=== PATIENT | female | born 1950 | race Caucasian/White ===

== ENCOUNTER 2019-03-31 13:07 | Outpatient (CLI) | payer MEDICARE, OTHER, SELFPAY ==
--- NOTE | 2019-03-31 13:21 | USCV_ITS ---
Letty Lindsey Age: 68 Gender: F : 1950 Exam Date: 03/31/2019 13:33 Ordering Phys: Iris Ashley RN Technologist: Pierre Irvin Exam Location: [facility] [place] Indication: HEART MURMUR BP: 130 / 74 HR: 92 Rhythm: Sinus Technical Quality: Good MEASUREMENTS (Male / Female) Normal Values 2D ECHO LV Diastolic Diameter PLAX 3.4 cm 4.2 - 5.9 / 3.9 - 5.3 cm LV Systolic Diameter PLAX 2.1 cm IVS Diastolic Thickness 1.0 cm 0.6 - 1.0 / 0.6 - 0.9 cm IVS Systolic Thickness 1.5 cm LVPW Diastolic Thickness 0.9 cm 0.6 - 1.0 / 0.6 - 0.9 cm LVPW Systolic Thickness 1.2 cm LVOT Diameter 2.1 cm LV Ejection Fraction 2D Teich 68.3 % LV Ejection Fraction MOD 2C 56.0 % LV Ejection Fraction 2C AL 58.3 % LA Diameter 4.6 cm LA Width 3.4 cm LA Height 4.8 cm RA Width 3.1 cm RA Height 4.4 cm Aorta at Sinotubular Diameter 2.3 cm M-MODE LV Diastolic Diameter MM 5.6 cm 4.2 - 5.9 / 3.9 - 5.3 cm LV Systolic Diameter MM 2.6 cm LV Ejection Fraction MM Teich 83.5 % IVS Diastolic Thickness MM 1.1 cm 0.6 - 1.0 / 0.6 - 0.9 cm IVS Systolic Thickness MM 1.7 cm LVPW Diastolic Thickness MM 1.1 cm 0.6 - 1.0 / 0.6 - 0.9 cm LVPW Systolic Thickness MM 1.7 cm RV Diastolic Diameter MM 1.4 cm Aortic Annulus Diameter 3.4 cm LA Ao Ratio MM 1.4 MV E Point Septal Separation 0.6 cm DOPPLER AV Peak Velocity 189.0 cm/s LVOT Peak Velocity 114.0 cm/s AV Area Cont Eq vti 2.2 cm squared AV Area Cont Eq pk 2.0 cm squared MV Area PHT 5.0 cm squared Mitral E to A Ratio 0.8 MV E' Velocity 8.0 cm/s Mitral E to MV E' Ratio 13.6 Mitral E to LV E' Lateral Ratio 12.7 Mitral E to LV E' Septal Ratio 14.8 TR Peak Velocity 110.0 cm/s TR Peak Gradient 4.9 mmHg TV Peak E Velocity 78.0 cm/s Right Atrial Pressure 3.0 mmHg Pulmonary Artery Systolic Pressu 7.8 mmHg PV Peak Velocity 103.0 cm/s FINDINGS Left Ventricle Normal left ventricular cavity size. Normal left ventricular systolic function. No regional wall motion abnormalities. Left ventricular ejection fraction is estimated at 65 %. Grade I/IV diastolic dysfunction (abnormal relaxation filling pattern), normal to mildly elevated filling pressures. Right Ventricle The right ventricle is normal in size and function. Right Atrium The right atrium is normal in size. Left Atrium The left atrium is normal in size. Mitral Valve Structurally normal mitral valve without significant stenosis or prolapse. There is no mitral regurgitation. Aortic Valve Aortic valve sclerosis without stenosis or regurgitation. Tricuspid Valve Structurally normal tricuspid valve without significant stenosis or regurgitation. Pulmonary artery systolic pressure is normal. Pulmonic Valve Structurally normal pulmonic valve without significant stenosis. There is no pulmonic regurgitation. Pericardium Normal pericardium without effusion. Aorta Normal ascending aorta dimension. CONCLUSIONS 1-Normal left ventricular cavity size. Normal left ventricular systolic function. No regional wall motion abnormalities. Left ventricular ejection fraction is estimated at 65 %. Grade I/IV diastolic dysfunction (abnormal relaxation filling pattern), normal to mildly elevated filling pressures. 2-No significant valve abnormalities. 3-There is no pericardial effusion. 4-Pulmonary artery systolic pressure is within normal limits. 5-Right atrial pressure is around 5 mm of mercury. 6-There are no prior echocardiogram studies to compare. Misty Jones MD (Electronically Signed) Final Date: 31 March 2019 19:15 S
== END 2019-03-31 13:08 | disposition home or self-care (01) ==
PROVIDERS: Family Provider Nurse Practitioner Family; PCP Nurse Practitioner Family; Visit Provider Nurse Practitioner Family
DX: I35.8 Other nonrheumatic aortic valve disorders (principal); R01.1 Cardiac murmur, unspecified
CPT/HCPCS: 93306

== ENCOUNTER 2019-04-02 10:25 | Outpatient (CLI) | payer MEDICARE, OTHER, SELFPAY ==
[2019-04-02] MEDS: sodium chloride 0.9% 100 ML 400 ML (12:25)
--- NOTE | 2019-04-02 18:25 | ONC CON_ITS ---
Dr. Okeefe New Patient Note Patient: Letty Lindsey Unit #: [id number]: 1950 Dicatated By: Juvenal Okeefe M.D.Date of Visit: Apr 02, 2019 Onc MED New Patient/Consult Referring Physician: Chief Complaint: Anemia. History of Present Illness: This is a 68 year-old woman with iron deficiency anemia. This patient has a history of having undergone a gastric banding procedure for obesity approximately 15 years ago. Her records indicate a prior history of peptic ulcer disease and a history of ulcerative colitis 10 years ago. She has had recurrent episodes of iron deficiency anemia, which required parenteral iron replacement, and she had not responded to oral iron therapy. She started getting these a few years ago while she was living in [place], and she indicates that she has been getting them about every 6 months. She was most recently treated here with 2 infusions of Injectafer in September 2018. She had a scheduled follow-up visit with Iris Ashley on 03/25/2019. Her CBC at that time showed hemoglobin low at 7.5 g with hematocrit 23.8%. The red cell indices were in the low normal range. The white blood cell count was 5100. The platelet count was mildly decreased at 105,000. Her comprehensive metabolic profile showed normal renal function with BUN 17 and creatinine 0.76 mg/dL. The bilirubin was borderline at 1.0 mg/dL with the liver enzymes slightly elevated and with the albumin level mildly decreased at 3.3 g/dL. Her initial serum iron studies showed low transferrin saturation at 6%. She was started on oral iron supplementation with ferrous sulfate 325 mg 3 times daily. Her repeat CBC showed hemoglobin slightly lower at 7.2 g. Her repeat serum iron was elevated, but that was most likely inaccurate. In October she had been admitted to the hospital with nausea/vomiting. I do not think you specific cause for it was determined. It was severe enough that she did have a [address] abdomen/pelvis showed somewhat irregular contour of the liver margins, suggesting possible cirrhosis, and her liver enzymes were mildly elevated. There was no splenomegaly, though. Gallbladder ultrasound reported hepatomegaly with fatty infiltration of the liver. She improved with conservative management. She is seen for further management of the anemia. She indicates that her energy has been very low, and she has had very limited activity tolerance. Some complement of that is related to having recently been treated for pneumonia. She says she is just now getting over it. Her ECOG score is 2. Her appetite is getting better. Her weight has remained stable since her hospitalization in October. She had fever with the pneumonia, but that has resolved. She does not have hot flashes or night sweating. She says her breathing is okay now. She has just a little bit of cough. She had soreness in the chest with the pneumonia, but she otherwise has not had chest pain. She did have some nausea initially with the ferrous sulfate. She has acid reflux, but it is managed adequately with medication. She had been having constipation, but recently she has started having some diarrhea. She has no complaints with bladder function. She says she has a lot of arthritis, mainly in her hands and legs. She also has back pain. She does not complain of headache. She had lightheadedness when she was sick. She has no focal neurologic symptoms. Past Medical History: Her medical history consists of degenerative arthritis, depression, gastroesophageal reflux disease, hyperlipidemia, hypertension, osteoporosis, and ulcerative colitis. She has a history of diabetes, which is currently not requiring treatment, and she has a history of seizures, Past Surgical History: Her surgical/procedural history includes excision of benign breast lesion, gastric band procedure, bilateral total knee arthroplasty in 2017, rotator cuff repair in 2017, and hysterectomy/bilateral salpingectomy-oophorectomy in 1989. Medications: Atorvastatin Calcium 1 Tablet (of 40 mg) Oral daily, Cymbalta 1 Capsule (of 60 mg) Capsule Delayed Release Particles Oral daily, Ferrous Sulfate 1 Tablet (of 325 (65 fe) mg) Oral daily, Folic Acid 1 Tablet (of 1 mg) Oral daily, Gabapentin 1 Tablet (of 600 mg) Oral daily, Lisinopril 1 Tablet Oral daily, Omeprazole 1 Tablet (of 20 mg) Tablet, enteric coated Oral daily, traZODone HCl 2 Tablet (of 50 mg) Oral at bedtime, ZyrTEC Allergy 1 Tablet (of 10 mg) Oral daily Allergies: penicillin Social History: Ms. Lindsey is . She has a history of smoking 1/2 pack of cigarettes daily for about 15 years. She quit approximately 20 years ago. She drinks 2 glasses of wine every night. She indicates that she has never been a heavy drinker. Family History: Father of prostate cancer at age 77. Her mother has heart disease and dementia. She still living at age 99. A brother has diabetes. A sister is been treated for breast cancer. Review Of Symptoms: Constitutional - Her energy is low. Her appetite is poor. She lost about 20 pounds last fall due to sickness. No fever, chills, hot flashes, or night sweats. ECOG score is 2, Eyes - Her vision has worsened. She has cataracts that will be removed, ENMT - She has sinus congestion/drainage with sore throat and slight cough. No mouth sores. No difficulty swallowing, Hematologic/Lymphatic - She bruises easily, Respiratory - She recently had pneumonia. No shortness of breath. No pleuritic pain or hemoptysis, Cardiovascular - She has chest soreness from the coughing. No angina pain. No palpitations, Gastrointestinal - No nausea or vomiting. No heartburn or acid reflux. She has had diarrhea. No blood in the stool or black stools, Genitourinary (F) - No dysuria or hematuria. No urinary frequency. No urgency or incontinence, Musculoskeletal - She has arthritis, mainly in her hands. She also has pain in her back and legs, Integumentary - No skin complications, Neurologic - She has occasional headaches. She was dizzy and light-headed when she had pneumonia. No numbness/paresthesias or other focal neurologic symptoms, Psychiatric - No anxiety or depression. No insomnia. Vital Signs: Performed on Apr 02, 2019 11:48: 0, 31.56 (HIGH), 1.70 sq.m, 60.00 in, 100 %, 92 /min, 22 /min, 131/72 mm(hg), 98.7 F, and 161.6 lbs (HIGH). Physical Examination: Constitutional - She appears somewhat weak generally, Eyes - Sclerae nonicteric. Conjunctivae clear, ENMT - No lesions noted in the oral cavity, Neck - No mass or thyromegaly, Hematologic/Lymphatic - No cervical, clavicular, or axillary adenopathy, Respiratory - Lungs sound clear with good air movement bilaterally, Cardiovascular - Heart rhythm is regular. There is a II/ systolic murmur. There is no gallop or rub noted, Abdomen - Soft and non-tender. Liver and spleen are not enlarged. There is no abdominal mass or ascites noted and there is no inguinal adenopathy, Back/Spine - No spine or CVA tenderness noted, Extremities - No edema. Pedal pulses are palpable bilaterally. There are purpuric lesions on both arms, Integumentary - No rashes. No suspicious skin lesions noted, Neurologic - No focal neurologic deficits noted. Impression: 1. Patient with recurrent episodes of iron deficiency anemia. This is most likely due to inadequate oral iron absorption, as in the past she has not been responsive to oral iron supplementation. She has required parenteral iron replacement on multiple occasions, most recently in August 2018. 2. She has a history of having undergone a gastric banding procedure approximately 15 years ago. 3. She also has GERD and a history of ulcerative colitis, and GI blood loss also needs to be excluded. Her other medical illnesses include: 4. Hypertension. 5. Hyperlipidemia. 6. She has a previous history of type 2 diabetes, but she has not required treatment for it since her gastric banding. 7. Degenerative arthritis. 8. Osteoporosis. 9. History of seizures. 10. Depression. Plan: She will be given parenteral iron replacement with 2 infusions of Injectafer. She will then have a 1-month interval follow-up visit, and based on her response, she can then have further evaluation for the anemia as indicated. Signed By: Juvenal Okeefe M.D. <<Signature on File>>
== END 2019-04-02 10:26 | disposition home or self-care (01) ==
PROVIDERS: Family Provider Nurse Practitioner Family; PCP Nurse Practitioner Family; Visit Provider Internal Medicine Hematology & Oncology
DX: D50.8 Other iron deficiency anemias (principal); M19.90 Unspecified osteoarthritis, unspecified site; F32.9 Major depressive disorder, single episode, unspecified; K21.9 Gastro-esophageal reflux disease without esophagitis; E78.5 Hyperlipidemia, unspecified; I10 Essential (primary) hypertension; M81.0 Age-related osteoporosis without current pathological fracture; Z98.84 Bariatric surgery status; Z87.11 Personal history of peptic ulcer disease; Z96.653 Presence of artificial knee joint, bilateral; Z87.891 Personal history of nicotine dependence
CPT/HCPCS: 96365; 99205; J1439

== ENCOUNTER 2019-04-10 09:32 | Outpatient (CLI) | payer MEDICARE, OTHER, SELFPAY ==
[2019-04-10] MEDS: sodium chloride 0.9% 100 ML 400 ML IV (09:50)
== END 2019-04-10 09:33 | disposition home or self-care (01) ==
LOC: ONCMED 09:38
PROVIDERS: Family Provider Nurse Practitioner Family; PCP Nurse Practitioner Family; Visit Provider Internal Medicine Medical Oncology
DX: D50.9 Iron deficiency anemia, unspecified (principal)
CPT/HCPCS: 96365; J1439

== ENCOUNTER 2019-05-11 12:28 | Outpatient (CLI) | payer MEDICARE, OTHER, SELFPAY ==
[2019-05-11 13:29] LABS: Basophils % 0.5 %; Eosinophils # 0.1 10^3/uL (0.0-0.8); Eosinophils % 1.8 %; Hematocrit 34.1 % (37.0-47.0); Hemoglobin 10.5 g/dL (11.5-15.3); Lymphocytes # 0.9 10^3/uL (0.8-4.8); Lymphocytes % 19.7 %; Mean Corpuscular HGB Conc 30.8 g/dL (30.0-36.0); Mean Corpuscular Hemoglobin 30.4 pg (28.0-34.0); Mean Corpuscular Volume 98.8 fL (81-99); Mean Platelet Volume 10.3 fL (7.4-10.4); Monocytes # 0.4 10^3/uL (0.2-0.9); Monocytes % 9.4 %; Neutrophils % 68.1 %; Nucleated Red Blood Cells % 0 %; Platelet Count 100 10^3/cmm (130-400); Red Blood Count 3.45 10^6/uL (4.1-5.3); Red Cell Distribution Width 19.3 % (12.1-15.1); White Blood Count 4.4 10^3/uL (4.0-10.0)
[2019-05-11 13:57] LABS: Alanine Aminotransferase 32 U/L (0-33); Albumin Level 2.9 g/dL (3.5-5.2); Alkaline Phosphatase 122 IU/L (35-105); Anion Gap 13.2 (5-19); Aspartate Amino Transferase 77 U/L (0-32); Blood Urea Nitrogen 8 mg/dL (8-23); Calcium 7.7 mg/dL (8.5-10.5); Carbon Dioxide 27 mmol/L (22-29); Chloride 100 mmol/L (98-107); Ferritin 382 ng/mL (15-150); Globulin 3.4 g/dL (1.3-4.6); Glomerular Filtration Rate 98.8 mL/min (90-130); Glucose 125 mg/dL (65-115); Iron 101 ug/dL (37-145); Lactate Dehydrogenase 287 U/L (135-214); Percent Saturation 56.4 % (20-50); Potassium 4.2 mmol/L (3.5-5.1); Sodium 136 mmol/L (136-145); Total Bilirubin 1.6 mg/dL (0.15-1.2); Total Iron Binding Capacity 179 mcg/dl; Total Protein 6.3 g/dL (6.6-8.7); Unsaturated Iron Binding 78 ug/dL (112-347)
[2019-05-11 14:13] LABS: Erythrocyte Sedimentation Rate 9 mm/hr (0-15); Vitamin B12 1187 pg/mL (232-1245)
[2019-05-11 14:41] LABS: Folate Level 11.1 ng/mL (4.8-37.3)
--- NOTE | 2019-05-15 14:08 | ONC FU_ITS ---
Dr. Okeefe Patient Follow-Up Note Patient: Letty Lindsey Unit #: [id number]: 1950 Dicatated By: Juvenal Okeefe M.D.Date of Visit:May 11, 2019 Onc Med Follow-up/Prog Note Chief Complaint: Anemia. History of Present Illness: This is a 68 year-old woman with iron deficiency anemia. This patient has a history of having undergone a gastric banding procedure for obesity approximately 15 years ago. Her records indicate a prior history of peptic ulcer disease and a history of ulcerative colitis 10 years ago. She has had recurrent episodes of iron deficiency anemia, which required parenteral iron replacement, and she had not responded to oral iron therapy. She started getting these a few years ago while she was living in [place], and she indicates that she has been getting them about every 6 months. She was most recently treated here with 2 infusions of Injectafer in September 2018. She had a scheduled follow-up visit with Iris Ashley on 03/25/2019. Her CBC at that time showed hemoglobin low at 7.5 g with hematocrit 23.8%. The red cell indices were in the low normal range. The white blood cell count was 5100. The platelet count was mildly decreased at 105,000. Her comprehensive metabolic profile showed normal renal function with BUN 17 and creatinine 0.76 mg/dL. The bilirubin was borderline at 1.0 mg/dL with the liver enzymes slightly elevated and with the albumin level mildly decreased at 3.3 g/dL. Her initial serum iron studies showed low transferrin saturation at 6%. She was started on oral iron supplementation with ferrous sulfate 325 mg 3 times daily. Her repeat CBC showed hemoglobin slightly lower at 7.2 g. Her repeat serum iron was elevated, but that was most likely inaccurate. In October she had been admitted to the hospital with nausea/vomiting. I do not think you specific cause for it was determined. It was severe enough that she did have a [address] abdomen/pelvis showed somewhat irregular contour of the liver margins, suggesting possible cirrhosis, and her liver enzymes were mildly elevated. There was no splenomegaly, though. Gallbladder ultrasound reported hepatomegaly with fatty infiltration of the liver. She improved with conservative management. I had seen her initially on 04/02/2019 for further management of the anemia. As her anemia was not responding to oral iron supplementation, she was given parenteral iron replacement with 2 infusions of Injectafer. She tolerated it without acute toxicity. She is seen for a follow-up visit. She has not been feeling good. She had recently started taking furosemide for generalized swelling. She complains that she was been dogged tired right after the iron infusions, but about a week later she started feeling a little better. She has been able to do some light work. ECOG score is 1. She says she does not have much appetite, but she has gained weight. She has no fever or night sweats. She said is has been a little bit harder for her to breathe. She has had some cough at night. She does not complain of chest pain. She had a little bit of nausea. She also has had constipation, but her stools have tended to be loose with a stool softener. She has not been aware of any blood in the stool. She has no complaints. Her arthritis pain is adequately managed. She has no focal neurologic symptoms. Medications: Atorvastatin Calcium 1 Tablet (of 40 mg) Oral daily, Cymbalta 1 Capsule (of 60 mg) Capsule Delayed Release Particles Oral daily, Folic Acid 1 Tablet (of 1 mg) Oral daily, Gabapentin 1 Tablet (of 600 mg) Oral daily, HYDROcodone-Acetaminophen 1 Tablet (of 5-325 mg) Oral daily, Lisinopril 1 Tablet (of 20 mg) Oral daily, Omeprazole 1 Tablet (of 20 mg) Tablet, enteric coated Oral daily, traZODone HCl 2 Tablet (of 50 mg) Oral at bedtime, ZyrTEC Allergy 1 Tablet (of 10 mg) Oral daily Allergies: penicillin Review of Systems: Constitutional - She complains that she is dogged tired, but she is doing some light work. She does not have much appetite, but she has gained weight. She complains that she feels bloated all over. She does not have fever, night sweats, or hot flashes. ECOG score is 1, ENMT - She has a little bit of sinus drainage. No mouth sores. No sore throat or difficulty swallowing, Hematologic/Lymphatic - She bruises easily, Respiratory - She says it is a little harder to breathe. She has had some cough at night. No pleuritic pain or hemoptysis, Cardiovascular - No angina pain. No palpitations, Gastrointestinal - She has a little bit of nausea. No heartburn or acid reflux. She has constipation, but her stools get loose with a stool softener. No blood in the stool or black stools, Genitourinary (F) - No dysuria or hematuria. No urinary frequency. No urgency or incontinence, Musculoskeletal - She has arthritis, mainly in her hands, Integumentary - No skin complications, Neurologic - No headache or dizziness. No numbness/paresthesias or other focal neurologic symptoms, Psychiatric - No anxiety or depression. She sleeps OK with trazodone. Vital Signs: Performed on May 11, 2019 14:04 Height - 60.00 in Weight - 184.0 lbs (HIGH) BSA - 1.80 sq.m BMI - 35.94 (HIGH) Temperature - 98.4 F Pulse - 97 /min Respiration - 22 /min BP - 170/76 mm(hg) (HIGH) O2 Sat - 97 % Pain - 0 Physical Examination: Constitutional - She appears somewhat weak generally, Eyes - Sclerae nonicteric. Conjunctivae clear, ENMT - No lesions noted in the oral cavity, Hematologic/Lymphatic - No cervical, clavicular, or axillary adenopathy, Respiratory - Lungs sound clear with good air movement bilaterally, Cardiovascular - Heart rhythm is regular. There is a II/ systolic murmur. There is no gallop or rub noted, Abdomen - Soft. Liver and spleen are not enlarged. There is no abdominal mass or ascites noted and there is no inguinal adenopathy, Extremities - Mild edema, Neurologic - No focal neurologic deficits noted. Lab/Imaging: Test performed on May 11, 2019 13:03 Ferritin 382 ng/mL Iron 101 ug/dL LDH (Total) 287 U/L Sodium 136 mmol/L Vitamin B12 1187 pg/mL Potassium 4.2 mmol/L Chloride 100 mmol/L CO2 27 mmol/L UIBC 78 ug/dL Anion Gap 13.2 BUN 8 mg/dL Creatinine 0.6 mg/dL Cr Clearance (Est) 114.95 mL/min eGFR 98.8 mL/min Glucose 125 mg/dL Calcium 7.7 mg/dL Protein, Total 6.3 g/dL Albumin 2.9 g/dL Globulin 3.4 g/dL Bilirubin, Total 1.6 mg/dL ALT (SGPT) 32 U/L AST (SGOT) 77 U/L Alkaline Phosphatase 122 IU/L ESR (Sed Rate) 9 mm/hr WBC 4.4 10 3/uL RBC 3.45 10 6/uL HGB 10.5 g/dL HCT 34.1 % MCV 98.8 fL MCH 30.4 pg MCHC 30.8 g/dL RDW 19.3 % Platelet Count 100 10 3/cmm MPV 10.3 fL Neutrophils 3.0 10 3/uL Lymphocytes 0.9 10 3/uL Monocytes 0.4 10 3/uL Eosinophils 0.1 10 3/uL Basophils 0.0 10 3/uL Neutrophil % 68.1 % Lymphocyte % 19.7 % Monocyte % 9.4 % Eosinophil % 1.8 % Basophils % 0.5 % Impression: 1. Patient with recurrent episodes of iron deficiency anemia. This is most likely due to inadequate oral iron absorption, as in the past she has not been responsive to oral iron supplementation. She has required parenteral iron replacement on multiple occasions, most recently in August 2018. 2. She has a history of having undergone a gastric banding procedure approximately 15 years ago. 3. She also has GERD and a history of ulcerative colitis, and GI blood loss also needs to be excluded. Her other medical illnesses include: 4. Hypertension. 5. Hyperlipidemia. 6. She has a previous history of type 2 diabetes, but she has not required treatment for it since her gastric banding. 7. Degenerative arthritis. 8. Osteoporosis. 9. History of seizures. 10. Depression. As her anemia was not responding to oral iron supplementation, she was given parenteral iron replacement with infusions of Injectafer on 04/02/2019 and on 04/10/2019. She felt significantly more fatigued for a few days after the iron infusions, but about a week later she did start feeling better. There has been improvement in her hemoglobin from baseline 7.5 g up to 10.5 g. Her transferrin saturation has increased to 56% and her ferritin is mildly elevated at 382 ng/mL. She continues, though, to have significant fatigue and she also has developed some generalized swelling. Plan: With her anemia incompletely corrected, I also will check a B12 level today. If that is normal I will just see her again in 1 month. She will then have further evaluation for anemia as indicated. Signed By: Juvenal Okeefe M.D. <<Signature on File>>
== END 2019-05-11 12:29 | disposition home or self-care (01) ==
PROVIDERS: Nurse Practitioner; Family Provider Nurse Practitioner Family; PCP Nurse Practitioner Family; Visit Provider Internal Medicine Medical Oncology
DX: D50.9 Iron deficiency anemia, unspecified (principal); I10 Essential (primary) hypertension; E78.5 Hyperlipidemia, unspecified; M19.90 Unspecified osteoarthritis, unspecified site; M81.0 Age-related osteoporosis without current pathological fracture; F32.9 Major depressive disorder, single episode, unspecified; Z98.84 Bariatric surgery status; Z79.891 Long term (current) use of opiate analgesic
CPT/HCPCS: 36415; 80053; 82607; 82728; 82746; 83540; 83550; 83615; 85025; 85651; G0463

== ENCOUNTER 2019-05-25 12:41 | Emergency (ER) | payer MEDICARE, OTHER, SELFPAY ==
[2019-05-25 13:10] VITALS: BP 147/83; PULSE 84; RESP 18; TEMP 36.6; O2SAT 98
--- NOTE | 2019-05-25 14:21 | ED_ITS ---
Entered by Marina Austin, acting as scribe for Macy Olivarez HPI - General Adult General: Chief complaint: General Medical Stated complaint: retaining fluid Time Seen by Provider: 05/25/19 14:15 Source: patient Mode of arrival: ambulatory Limitations: no limitations History of Present Illness: HPI narrative: 68 yo Female presents to ED with complaint of fluid retention. Pt states that she is having swelling in her legs, feet, and stomach. Pt states that she has been told previously that she had fatty liver. Pt denies liver cirrhosis. Pt states that she has gone up 25 pounds in 24 days. Pt denies shortness of breath. Pt states that she does get short of breath on exertion. She states she has to walk quite a distance to become short of breath though. She denies any chest pain, syncope or near syncope. Pt is scheduled for a lower abdomen ultrasound on the 04 of June. MD complaint: Fluid retention Onset (ago): day(s) (24) Location: abdomen and lower extremity Radiation: non-radiation Relieving factors: none Exacerbating factors: none Associated symptoms: Reports dyspnea, short of breath and other (swelling to bilateral lower extremities and abdomen); Deny chest pain, confusion, diaphoresis, headache(s), malaise, nausea, rash, palpitations, syncope or vomiting Treatments prior to arrival: none Review of Systems General: Reports: other (negative unless marked) Const: Denies: fever, chills, body aches, fatigue, malaise or diaphoresis Eyes: Denies: change in vision or blurry vision ENMT: Denies: throat pain, painful swallowing, hoarseness, ear pain, ear discharge, Change in hearing or nasal discharge Card: Reports: swelling of feet/ankles and shortness of breath on exertion; Denies: chest pain, palpitations, irregular heart rhythm, syncope, pre-syncope or shortness of breath when lying down Resp: Reports: shortness of breath; Denies: productive cough, non-productive cough, wheezing, coughing up blood or chest congestion GI: Denies: abdominal pain, nausea, vomiting, vomiting blood, coffee grounds in vomit, diarrhea, constipation, cramping, blood in stool or black tarry stool : Denies: flank pain, painful urination, urinary frequency, urinary urgency, decreased urine ouput, urinary incontinence or blood in urine Musc: Denies: neck pain, back pain, extremity pain, extremity swelling, joint pain, joint swelling, joint warmth or joint stiffness Skin/Breast: Denies: rash, skin tenderness or yellow skin Neuro: Denies: headache, numbness in extremities, weakness in extremities, changes in sensation, lack of coordination, difficulty walking, dizziness, vertigo or confusion Endo: Denies: excessive thirst, tired all the time, cold intolerance, excessive sweating, flushing or hot flashes Randal/Lymph: Denies: easy bruising, easy bleeding, petechiae or enlarged lymph nodes All/Imm: Denies: hives, throat swelling, tongue swelling, facial swelling or acute wheezing PFSH ED PFSH: Medical History Anemia Diabetes HTN (hypertension) Hyperlipidemia Osteoporosis Seizure Surgical History History of knee surgery Social History Smoking and tobacco status: never smoked Physical Exam Const: COMMON NORMALS: no apparent distress, oriented x3, no limitations, healthy appearing and well nourished EXAM LIMITATIONS: no altered mental status GENERAL APPEARANCE: cooperative, well kempt and well developed ORIENTATION/CONSCIOUSNESS: Yes awake HENMT: COMMON NORMALS: normocephalic, head/scalp atraumatic, hearing grossly normal bilaterally, external ears normal, EAC's normal, external nose normal and moist oral mucous membranes HEAD & SCALP: normal to inspection, normocephalic and atraumatic FACE & SINUS: normal facial exam and face symmetric NOSE: external nose normal and nares normal EXTERNAL EAR: Yes external ears normal EXTERNAL AUDITORY CANAL: EAC's normal MOUTH: oral and palatal mucosa normal and tongue normal Eye: COMMON NORMALS: PERRL, EOMs intact bilaterally, conjunctivae normal and no scleral icterus GENERAL EYE: normal appearance of both eyes and normal light reflex CONJUNCTIVA: Yes conjunctivae normal SCLERA: sclerae normal CORNEA: Yes corneas normal PUPIL: Yes PERRL DIRECT OPHTHALMOSCOPY: Yes normal light reflex Neck/C-Spine: COMMON NORMALS: full ROM, no lymphadenopathy, supple, no meningeal signs and no JVD GENERAL: Yes normal visual inspection and Yes trachea midline CERVICAL SPINE: Yes cervical ROM normal Chest: COMMONS NORMALS: inspection of chest normal and palpation of chest normal Resp: COMMON NORMALS: normal respiratory effort, no retractions, no use of accessory muscles and clear to auscultation bilaterally EFFORT & INSPECTION: Yes able to speak in complete sentences AUSCULTATION: clear to auscultation bilaterally Cardio: COMMON NORMALS: no JVD, regular rate, regular rhythm, S1 normal heart sound, S2 normal heart sound, no gallops, no clicks and no rub; negative for no murmurs JUGULAR VENOUS DISTENTION: no JVD RATE: regular rate RHYTHM: regular rhythm HEART SOUNDS: S1 normal, S2 normal and murmur systolic Intensity: III/ GI: COMMON NORMALS: soft to palpation, non-tender, no hepatosplenomegaly and no masses INSPECTION: Yes normal to inspection and Yes other (swelling to abdomen) PALPATION: Yes soft and Yes no hepatosplenomegaly RECTAL EXAM: deferred : COMMON NORMALS: Yes no CVA tenderness BLADDER/KIDNEY EXAM: Yes no CVA tenderness Back/Pelvis: COMMON NORMALS: no CVA tenderness, thoracic and lumbar spine normal to inspection, no thoracic nor lumbar tenderness and thoraco-lumbar ROM normal Extremity: COMMON NORMALS: normal to inspection, full ROM, normal capillary refill, no joint enlargement and no calf tenderness; negative for no clubbing, cyanosis or edema GENERAL: Yes edema (bilateral lower extremities and abdomen) Neuro: COMMON NORMALS: oriented x3, CN's II-XII intact bilaterally, moves all extremities, no focal motor deficits and no sensory deficits noted MENINGEAL SIGNS: Yes no meningeal signs Psych: COMMON NORMALS: mental status grossly normal, thought process normal, cooperative, affect normal, speech normal and activity/motor behavior normal APPEARANCE: Yes well kempt SPEECH: Yes normal speech THOUGHT PROCESS: normal thought process Skin: COMMON NORMALS: no rashes or lesions noted, skin turgor normal, no jaund ice, no petechiae and no mottling GENERAL SKIN EXAM: no rashes or lesions noted and turgor normal Course Vital Signs: Vital signs: Vital Signs Temperature 98 F 05/25/19 13:10 Pulse Rate 84 05/25/19 13:10 Respiratory Rate 18 05/25/19 13:10 Blood Pressure 147/83 05/25/19 13:10 Pulse Oximetry 98 05/25/19 13:10 MDM - General Adult MDM Narrative: Medical decision making narrative: The patient's anemia is not new she has a history of iron deficiency and may end up having to have transfusions in the future. She denies any black starry stools or blood in her stool. There is no indication for EGD or colonoscopy at this time. I discussed the abdomen ultrasound at length with Dr. Hanna who states there is not enough fluid to drain. The patient has no sign of spontaneous bacterial peritonitis or abdominal discomfort. She simply here because she is swollen. I discussed the case with Dr. Proctor who did not believe the patient met criteria to be admitted if she cannot get a paracentesis. The patient was happy to hear this and wanted to go home. I then reviewed the case in full with Dr. Gutierrez the supervising physician for Ms. Ashley of the nurse practitioner who cares for this patient and he says the patient can start on spironolactone 25 to 50 mg daily and follow-up with her in the office. The patient wants to proceed this way and she declines admission. She does agree to return should her symptoms change or worsen in any way. Lab Data: Labs: Lab Results 05/25/19 05/25/19 05/25/19 Range/Units 13:32 14:55 14:55 WBC 6.2 (4.0-10.0) 10^3/ uL RBC 2.98 L (4.1-5.3) 10^6/u L Hgb 9.4 L (11.5-15.3) g/dL Hct 29.6 L (37.0-47.0) % MCV 99.3 H (81-99) fL MCH 31.5 (28.0-34.0) pg MCHC 31.8 (30.0-36.0) g/dL RDW 16.1 H (12.1-15.1) % Plt Count 105 L (130-400) 10^3/c mm MPV 12.2 H (7.4-10.4) fL Neut % (Auto) 69.5 % Lymph % (Auto) 18.5 % [place] % (Auto) 9.0 % Eos % (Auto) 2.3 % Baso % (Auto) 0.5 % Neut # (Auto) 4.3 (1.8-7.7) 10^3/u L Lymph # (Auto) 1.2 (0.8-4.8) 10^3/u L [place] # (Auto) 0.6 (0.2-0.9) 10^3/u L Eos # (Auto) 0.1 (0.0-0.8) 10^3/u L Baso # (Auto) 0.0 (0.0-0.1) 10^3/u L Nucleated RBC % (a uto) 0 % Nucleated RBCs # 0.0 /100WBC PT (10.5-13.3) SECO NDS INR (0.8-1.2) APTT (23.9-36.7) SECO NDS Sodium 134 L (136-145) mmol/L Potassium 4.4 (3.5-5.1) mmol/L Chloride 94 L (98-107) mmol/L Carbon Dioxide 30 H (22-29) mmol/L Anion Gap 14.4 (5-19) BUN 16 (8-23) mg/dL Creatinine 0.9 (0.5-0.9) mg/dL GFR Calculation 61.9 L (90-130) mL/min Glucose 128 H (65-115) mg/dL Calculated Osmolal ity 276 L (285-295) mOsm/k g Calcium 7.9 L (8.5-10.5) mg/dL Magnesium 2.4 H (1.7-2.3) mg/dL Total Bilirubin 1.5 H (0.15-1.2) mg/dL AST 86 H (0-32) U/L ALT 33 (0-33) U/L Alkaline Phosphata se 115 H (35-105) IU/L Troponin T Baselin e (0-10) ng/mL Troponin T 120 Min benton (0-10) ng/mL NT-Pro-B Natriuret Pep 78 (0-125) pg/mL Total Protein 5.7 L (6.6-8.7) g/dL Albumin 3.0 L (3.5-5.2) g/dL Globulin 2.7 (1.3-4.6) g/dL Urine Color Dark yellow (Yellow) Urine Appearance Clear (CLEAR) Urine pH 6.5 (5-7) Ur Specific Gravit y 1.005 (1.005-1.030) Urine Protein Neg (Negative) Urine Glucose (UA) Norm (Normal) Urine Ketones Negative (Negative) Urine Blood Neg (Negative) Urine Nitrate Negative (Negative) Urine Bilirubin Neg (NEGATIVE) Urine Urobilinogen 8 H (Negative) mg/dL Ur Leukocyte Hannah ase Negative (Negative) Urine RBC None (0-2) /hpf Urine WBC 0-4 H (0-5) /hpf Ur Squamous Epith Cells 0-4 H (0-5) Urine Bacteria Trace (NONE) 05/25/19 05/25/19 05/25/19 Range/Units 14:55 14:55 16:55 WBC (4.0-10.0) 10^3/ uL RBC (4.1-5.3) 10^6/u L Hgb (11.5-15.3) g/dL Hct (37.0-47.0) % MCV (81-99) fL MCH (28.0-34.0) pg MCHC (30.0-36.0) g/dL RDW (12.1-15.1) % Plt Count (130-400) 10^3/c mm MPV (7.4-10.4) fL Neut % (Auto) % Lymph % (Auto) % [place] % (Auto) % Eos % (Auto) % Baso % (Auto) % Neut # (Auto) (1.8-7.7) 10^3/u L Lymph # (Auto) (0.8-4.8) 10^3/u L [place] # (Auto) (0.2-0.9) 10^3/u L Eos # (Auto) (0.0-0.8) 10^3/u L Baso # (Auto) (0.0-0.1) 10^3/u L Nucleated RBC % (a uto) % Nucleated RBCs # /100WBC PT 18.50 H (10.5-13.3) SECO NDS INR 1.49 H (0.8-1.2) APTT 30.2 (23.9-36.7) SECO NDS Sodium (136-145) mmol/L Potassium (3.5-5.1) mmol/L Chloride (98-107) mmol/L Carbon Dioxide (22-29) mmol/L Anion Gap (5-19) BUN (8-23) mg/dL Creatinine (0.5-0.9) mg/dL GFR Calculation (90-130) mL/min Glucose (65-115) mg/dL Calculated Osmolal ity (285-295) mOsm/k g Calcium (8.5-10.5) mg/dL Magnesium (1.7-2.3) mg/dL Total Bilirubin (0.15-1.2) mg/dL AST (0-32) U/L ALT (0-33) U/L Alkaline Phosphata se (35-105) IU/L Troponin T Baselin e 17 H (0-10) ng/mL Troponin T 120 Min benton 15.28 H (0-10) ng/mL NT-Pro-B Natriuret Pep (0-125) pg/mL Total Protein (6.6-8.7) g/dL Albumin (3.5-5.2) g/dL Globulin (1.3-4.6) g/dL Urine Color (Yellow) Urine Appearance (CLEAR) Urine pH (5-7) Ur Specific Gravit y (1.005-1.030) Urine Protein (Negative) Urine Glucose (UA) (Normal) Urine Ketones (Negative) Urine Blood (Negative) Urine Nitrate (Negative) Urine Bilirubin (NEGATIVE) Urine Urobilinogen (Negative) mg/dL Ur Leukocyte Hannah ase (Negative) Urine RBC (0-2) /hpf Urine WBC (0-5) /hpf Ur Squamous Epith Cells (0-5) Urine Bacteria (NONE) Imaging Data^: CXR: My impression: No acute cardiopulmonary findings. US Venous Duplex: Radiologist's impression: [place] [address] Ultrasound Report Signed Patient: Letty Lindsey #: [id number] : 1951Acct#:[id number] Age/Sex: 68 / FADM Date: 05/25/19 Loc: [facility]oom/Bed: Attending Dr: Ordering Provider/Ordering MD: Macy Olivarez DO Date of Service: 05/25/19 Procedure(s): [place] [id number] Accession Number(s): [id number] Report Number: [id number] Letty Lindsey Age: 68 Gender: F : 1950 Exam Date: 05/25/2019 14:55 Ordering Phys: Macy Olivarez DO Technologist: Pierre Irvin [place] [facility] [place]: SWELLING HISTORY: Lower extremity swelling. PROCEDURES: Venous duplex imaging was performed in bilateral lower extremities. The following venous structures were evaluated: common femoral vein, profunda vein, proximal portion of the greater saphenous vein, superficial femoral vein, and the popliteal vein. In addition, the posterior tibial and peroneal trunk were evaluated. Serial compression, augmentation maneuvers, and spectral Doppler flow evaluation were performed. FINDINGS: Normal 2-D Doppler and augmentation and compressibility throughout the lower extremity venous structures. Additional imaging through the proximal calf veins also reveals no thrombus. Limited evaluation of the greater saphenous vein is patent with no thrombus. CONCLUSIONS No DVT bilateral lower extremities. Dr. Charlene Hanna DO (Electronically Signed) Final Date: 25 May 2019 16:07 S US Abdomen: Radiologist's impression: [address] [address] Ultrasound Report Signed Patient: Letty iLndsey #: [id number] : 9Acct#:[id number] Age/Sex: 68 / FADM Date: 05/25/19 Loc: [facility]/Bed: Attending Dr: Ordering Provider/Ordering MD: Macy Olivarez DO Date of Service: 05/25/19 Procedure(s): US abdomen complete* 50139 Accession Number(s): [id number] Report Number: [id number] WS: [id number] Complete ABDOMINAL ULTRASOUND HISTORY: Abdominal Pain COMPARISON: None available. Liver: 15.9 cm in length. Poorly visualized liver due to body habitus. Coarsened echotexture with findings of hepatic steatosis. Marked attenuation and possible cirrhosis. Gallbladder: Contracted gallbladder with diffuse gallbladder wall thickening. No stones are identified but this is a poorly visualized gallbladder. Gallbladder wall thickness: 0.6 cm. Pancreas: Not visualized. CBD: 0.5 cm. Right kidney: 11.0 cm x 5.5 cm x 4.9 cm. No mass, cortical thickening or hydronephrosis. Left kidney: 10.6 cm x 4.8 cm x 5.2 cm. No mass, cortical thickening or hydronephrosis. Spleen: Normal size and echogenicity. Abdominal aorta and IVC are within normal limits. There is a small amount of ascites in the RIGHT abdomen. US/US abdomen complete* [id number] IMPRESSION: 1. Abnormal liver and gallbladder. Contracted gallbladder with wall thickening. No stones identified. Changes of cirrhosis and hepatic steatosis. Gallbladder findings may be related to chronic hepatocellular disease. 2. No bile duct dilatation. 3. Small amount of ascites RIGHT upper quadrant. Ascites is new since 10/29/2018. Dictated By:Charlene Hanna DO Signed By:Charlene Hanna DOSigned Date/Time:05/25/191627 DD/ 24 EKG Data^: EKG 1: Attestation: I personally reviewed and interpreted this EKG as follows: EKG interpretation date: 05/25/19 EKG interpretation time: 15:02 Interpretation: Normal sinus rhythm at 86 beats a minute, no acute ST-T wave changes, normal intervals, no blocks. Unchanged from previous. Computer generated interpretation: Chest X-Ray 05/25/19 14:23 IMPRESSION: Subtle opacification in the right lung base which may represent developing infiltrates. Follow-up is recommended. Abdomen Ultrasound 05/25/19 14:50 IMPRESSION: 1. Abnormal liver and gallbladder. Contracted gallbladder with wall thickening. No stones identified. Changes of cirrhosis and hepatic steatosis. Gallbladder findings may be related to chronic hepatocellular disease. 2. No bile duct dilatation. 3. Small amount of ascites RIGHT upper quadrant. Ascites is new since 10/29/2018. Discharge Plan Discharge Patient Disposition: Home, Self-Care Clinical Impression: Edema Qualifiers: Edema type: generalized Qualified Code(s): R60.1 - Generalized edema Cirrhosis Qualifiers: Hepatic cirrhosis type: unspecified hepatic cirrhosis Ascites presence: with ascites Qualified Code(s): K74.60 - Unspecified cirrhosis of liver Condition: Stable Prescriptions: New spironolactone 25 mg tablet 25 mg PO BID Qty: 30 RF: 0 No Action gabapentin 600 mg Tablet 600 mg PO BID RF: 0 trazodone 50 mg Tablet 100 mg PO DAILY RF: 0 cetirizine 10 mg Tablet 10 mg PO DAILY RF: 0 lisinopril 20 mg Tablet 20 mg PO DAILY RF: 0 Zofran 4 mg Tablet 4 mg PO Q6H PRN (Reason: Nausea) RF: 0 clobetasol 0.05 % Cream 1 applic TOPICAL DAILY RF: 0 hydrocodone-acetaminophen 10-325 mg Tablet 1 tab PO Q8H PRN (Reason: Pain) RF: 0 omeprazole 20 mg Capsule,Delayed Release(Dr/Ec) 20 mg PO BID RF: 0 nystatin 100,000 unit/gram Powder 1 applic TOPICAL BID RF: 0 albuterol sulfate 90 mcg/actuation Hfa Aerosol Inhaler 2 puff INHALATION 6XD PRN (Reason: Shortness Of Breath) RF: 0 Cymbalta 60 mg Capsule,Delayed Release(Dr/Ec) 60 mg PO DAILY RF: 0 Voltaren 1 % Gel 2 g TOPICAL QID RF: 0 Narcan 4 mg/actuation [place],Non-Aerosol 4 mg INTRANASAL Q3M PRN (Reason: overdose) RF: 0 Discharge Orders: Discharge Order (Routine); Ordered 05/25/19 Ordered By: Macy Olivarez Referrals: Iris Ashley FNP [Primary Care Provider] - 1-3 days Discharge Diet: Advance as tolerated Discharge Activity: Increase activity as tolerated Patient Instructions: Cirrhosis (ED), Leg Edema (ED) Activity Restrictions/Additional Instructions: Please return to the ER immediately for any of the signs or symptoms listed on your discharge instruction sheets, worsening/changing of your symptoms, you are not getting better as quickly as expected, or for ANY other cause or concerns. If you develop chest pain, shortness of breath, your edema gets worse, you have blood or black tarry stools or throw up blood please return to the ER immediately for recheck. Coding Level of Care Code ED Head Rigger for Chg Fwd Exam Comprehensive The documentation recorded by the Norman barraza Carmen, accurately reflects the service I personally performed and the decisions made by , Macy Olivarez
--- NOTE | 2019-05-25 14:23 | XRR_ITS ---
PROCEDURE INFORMATION: Exam: XR Chest, 1 View Exam date and time: 05/25/2019 2:46 PM Age: 68 years old Clinical indication: Cough; Additional info: Cough, edema TECHNIQUE: Imaging protocol: XR of the chest Views: 1 view. COMPARISON: CR Chest 1 [place] [id number] 10/29/2018 2:40 PM FINDINGS: Lungs: There is subtle opacification in the right lung base which may represent developing infiltrates. Pleural space: Unremarkable. No pleural effusion. No pneumothorax. Heart/Mediastinum: Unremarkable. No cardiomegaly. Bones/joints: Right shoulder arthroplasty. XR/XR chest 1V portable [id number] IMPRESSION: Subtle opacification in the right lung base which may represent developing infiltrates. Follow-up is recommended.
--- NOTE | 2019-05-25 14:25 | ECG_ITS ---
Measurements Intervals [place] Rate: 86 P: 9 OK: 152 QRS: -3 QRSD: 67 T: 48 QT: 366 QTc: 439 SINUS RHYTHM LOW QRS VOLTAGE IN PRECORDIAL LEADS [QRS DEFLECTION < 1.0 mV IN CHEST LEADS] MINIMAL ST DEPRESSION [0.025+ mV ST DEPRESSION] Compared to ECG 10/30/2018 12:29:59 Low QRS voltage now present ST (T wave) deviation now present Sinus tachycardia no longer present Myocardial infarct finding no longer present Electronically Signed On 05-25-2019 20:50:59 CDT by Misty Jones M.D. [email or web address]
--- NOTE | 2019-05-25 14:49 | USCV_ITS ---
Letty Lindsey Age: 68 Gender: F : 1950 Exam Date: 05/25/2019 14:55 Ordering Phys: Macy Olivarez DO Technologist: Pierre Irvin [place]am [place] [facility] [place] Indication: SWELLING HISTORY: Lower extremity swelling. PROCEDURES: Venous duplex imaging was performed in bilateral lower extremities. The following venous structures were evaluated: common femoral vein, profunda vein, proximal portion of the greater saphenous vein, superficial femoral vein, and the popliteal vein. In addition, the posterior tibial and peroneal trunk were evaluated. Serial compression, augmentation maneuvers, and spectral Doppler flow evaluation were performed. FINDINGS: Normal 2-D Doppler and augmentation and compressibility throughout the lower extremity venous structures. Additional imaging through the proximal calf veins also reveals no thrombus. Limited evaluation of the greater saphenous vein is patent with no thrombus. CONCLUSIONS No DVT bilateral lower extremities. Dr. Charlene Hanna DO (Electronically Signed) Final Date: 25 May 2019 16:07 S
--- NOTE | 2019-05-25 14:50 | US_ITS ---
WS: [id number] Complete ABDOMINAL ULTRASOUND HISTORY: Abdominal Pain COMPARISON: None available. Liver: 15.9 cm in length. Poorly visualized liver due to body habitus. Coarsened echotexture with fin dings of hepatic steatosis. Marked attenuation and possible cirrhosis. Gallbladder: Contracted gallbladder with diffuse gallbladder wall thickening. No stones are identifie d but this is a poorly visualized gallbladder. Gallbladder wall thickness: 0.6 cm. Pancreas: Not visualized. CBD: 0.5 cm. Right kidney: 11.0 cm x 5.5 cm x 4.9 cm. No mass, cortical thickening or hydronephrosis. Left kidney: 10.6 cm x 4.8 cm x 5.2 cm. No mass, cortical thickening or hydronephrosis. Spleen: Normal size and echogenicity. Abdominal aorta and IVC are within normal limits. There is a small amount of ascites in the RIGHT abdomen. US/US abdomen complete* [id number] IMPRESSION: 1. Abnormal liver and gallbladder. Contracted gallbladder with wall thickening . No stones identified. Changes of cirrhosis and hepatic steatosis. Gallbladder findings may be related to chronic hepatocellular disease. 2. No bile duct dilatation. 3. Small amount of ascites RIGHT upper quadrant. Ascites is new since 9.
[2019-05-25 15:11] LABS: Basophils % 0.5 %; Eosinophils # 0.1 10^3/uL (0.0-0.8); Eosinophils % 2.3 %; Hematocrit 29.6 % (37.0-47.0); Hemoglobin 9.4 g/dL (11.5-15.3); Lymphocytes # 1.2 10^3/uL (0.8-4.8); Lymphocytes % 18.5 %; Mean Corpuscular HGB Conc 31.8 g/dL (30.0-36.0); Mean Corpuscular Hemoglobin 31.5 pg (28.0-34.0); Mean Corpuscular Volume 99.3 fL (81-99); Mean Platelet Volume 12.2 fL (7.4-10.4); Monocytes # 0.6 10^3/uL (0.2-0.9); Neutrophils # 4.3 10^3/uL (1.8-7.7); Neutrophils % 69.5 %; Nucleated Red Blood Cells % 0 %; Platelet Count 105 10^3/cmm (130-400); Red Blood Count 2.98 10^6/uL (4.1-5.3); Red Cell Distribution Width 16.1 % (12.1-15.1); White Blood Count 6.2 10^3/uL (4.0-10.0)
[2019-05-25 15:36] LABS: Troponin(5th) Baseline 17 ng/mL (0-10)
[2019-05-25 15:44] LABS: Alanine Aminotransferase 33 U/L (0-33); Alkaline Phosphatase 115 IU/L (35-105); Anion Gap 14.4 (5-19); Aspartate Amino Transferase 86 U/L (0-32); Blood Urea Nitrogen 16 mg/dL (8-23); Calcium 7.9 mg/dL (8.5-10.5); Carbon Dioxide 30 mmol/L (22-29); Chloride 94 mmol/L (98-107); Globulin 2.7 g/dL (1.3-4.6); Glomerular Filtration Rate 61.9 mL/min (90-130); Glucose 128 mg/dL (65-115); Magnesium 2.4 mg/dL (1.7-2.3); NT Pro B Type Natriuretic Pept 78 pg/mL (0-125); Osmolality Calculated 276 mOsm/kg (285-295); Potassium 4.4 mmol/L (3.5-5.1); Sodium 134 mmol/L (136-145); Total Bilirubin 1.5 mg/dL (0.15-1.2); Total Protein 5.7 g/dL (6.6-8.7)
[2019-05-25 16:14] LABS: Bilirubin Urine Neg (NEGATIVE); Blood Urine Neg (Negative); Glucose Urine UA Norm (Normal); Ketones Urine Negative (Negative); Leukocyte Esterase Urine Negative (Negative); Nitrate Urine Negative (Negative); Protein Urine Neg (Negative); Specific Gravity, Urine 1.005 (1.005-1.030); Urine Appearance Clear (CLEAR); Urine Color Dark Yellow (Yellow); Urobilinogen Urine 8 mg/dL (Negative); pH Urine 6.5 (5-7)
[2019-05-25 16:15] LABS: Bacteria Urine TRACE; Squamous Epithelial Cell Urine 0-4 (0-5); WBC Urine 0-4 /hpf (0-5)
[2019-05-25 16:33] LABS: INR 1.49 (0.8-1.2)
[2019-05-25 16:34] LABS: Partial Thromboplastin Time 30.2 SECONDS (23.9-36.7)
[2019-05-25 18:06] LABS: Troponin 5 2HR 15.28 ng/mL (0-10)
[2019-05-25 18:15] VITALS: BP 122/70; PULSE 89; RESP 18; O2SAT 96
[2019-05-25 18:23] LABS: Troponin 5 2HR Delta -1.72 ABS# (0-10)
== END 2019-05-25 18:16 | disposition home or self-care (01) ==
PROVIDERS: Emergency Provider Emergency Medicine; Family Provider Nurse Practitioner Family; PCP Nurse Practitioner Family
DX: R60.0 Localized edema (principal); K74.60 Unspecified cirrhosis of liver; R18.8 Other ascites; E11.9 Type 2 diabetes mellitus without complications; I10 Essential (primary) hypertension; E78.5 Hyperlipidemia, unspecified
CPT/HCPCS: 12345; 36415; 71045; 76700; 80053; 81001; 83735; 83880; 84484; 85025; 85610; 85730; 93005; 93970; 99281; 99284

== ENCOUNTER 2019-07-10 08:11 | Outpatient (CLI) | payer MEDICARE, OTHER, SELFPAY ==
--- NOTE | 2019-07-10 14:04 | ONC FU_ITS ---
Dr. Okeefe Patient Follow-Up Note Patient: Letty Lindsey Unit #: [id number]: 1950 Dicatated By: Juvenal Okeefe M.D.Date of Visit:Jul 10, 2019 Onc Med Follow-up/Prog Note Chief Complaint: Anemia. History of Present Illness: This is a 68 year-old woman with iron deficiency anemia. She has a history of having undergone a gastric banding procedure for obesity approximately 15 years ago. Her records indicate a prior history of peptic ulcer disease and a history of ulcerative colitis 10 years ago. She has had recurrent episodes of iron deficiency anemia, which required parenteral iron replacement, as she had not responded to oral iron therapy. She started getting these a few years ago while she was living in [place], and she had been getting them about every 6 months. She was most recently treated here with 2 infusions of Injectafer in September 2018. She had a scheduled follow-up visit with Iirs Ashley on 03/25/2019. Her CBC at that time showed hemoglobin low at 7.5 g with hematocrit 23.8%. The red cell indices were in the low normal range. The white blood cell count was 5100. The platelet count was mildly decreased at 105,000. Her comprehensive metabolic profile showed normal renal function with BUN 17 and creatinine 0.76 mg/dL. The bilirubin was borderline at 1.0 mg/dL with the liver enzymes slightly elevated and with the albumin level mildly decreased at 3.3 g/dL. Her initial serum iron studies showed low transferrin saturation at 6%. She was started on oral iron supplementation with ferrous sulfate 325 mg 3 times daily. Her repeat CBC showed hemoglobin slightly lower at 7.2 g. Her repeat serum iron was elevated, but that was most likely inaccurate. In October 2018 she had been admitted to the hospital with nausea/vomiting. I do not think you specific cause for it was determined. It was severe enough that she did have a [address] loss[address] abdomen/pelvis showed somewhat irregular contour of the liver margins, suggesting possible cirrhosis, and her liver enzymes were mildly elevated. There was no splenomegaly, though. Gallbladder ultrasound reported hepatomegaly with fatty infiltration of the liver. She improved with conservative management. I had seen her initially on 04/02/2019 for further management of the anemia. As her anemia was not responding to oral iron supplementation, she was given parenteral iron replacement with 2 infusions of Injectafer. She tolerated it without acute toxicity. At her follow-up visit on 05/11/2019 she did show evidence of response, though she was still mildly anemic with hemoglobin 10.5 g. The white blood cell count was 4400 and the platelet count was 100,000. The red cell indices were normal. Her serum iron studies show transferrin saturation 56.4% and the ferritin was slightly elevated at 382 ng/mL. Her B12 level was normal at 1187 pg/mL, and the folate was normal at 11.1 ng/mL. Her medical history, in addition to gastric banding, includes ulcerative colitis, peptic ulcer disease/GERD, hypertension, hyperlipidemia, type 2 diabetes, degenerative arthritis, and osteoporosis. She has longstanding history of psoriasis. She had extensive treatment for it in the past, including methotrexate. She has history of depression and a history of seizures. Her other surgeries include hysterectomy/BSO, bilateral total knee arthroplasty, and rotator cuff repair on the right shoulder. She has a history of smoking 1/2 pack of cigarettes daily for about 15 years, but she quit approximately 20 years ago. INTERIM HISTORY: Her repeat CBC from 07/03/2019 showed hemoglobin down to 8.7 g with white blood cell count 5600 and platelet count 126,000. The red cell indices were macrocytic. The uncorrected reticulocyte count was 2.75%. Her serum iron studies showed just slightly low transferrin saturation at 18%. Her protein electrophoresis showed no evidence of monoclonal protein. With those findings she had additional laboratory studies yesterday. Those included CBC showing hemoglobin 9.2 g, white blood cell count 5400, and platelet count 147,000. The uncorrected reticulocyte count was 2.2%. Sed rate was normal at 23 mm/hour. Comprehensive metabolic profile showed mildly elevated total bilirubin at 2.3 mg/dL with borderline high to just slightly elevated liver enzymes. The direct bilirubin was 0.0. LDH was slightly elevated at 274/240 6U/L. Her EARL was negative. The ferritin was normal at 93 ng/mL. She is seen for a follow-up visit. She has been feeling more tired, the point that it is all she can do to walk across the room. She has virtually no activity. ECOG score is 3. Her appetite has been poor. Her weight is been stable, but she does complain that she has fluid retention. She has not had fever or night sweats. She is short of breath at times. She has a dry cough. She does not complain of chest pain. She has not been having nausea or acid reflux symptoms. Her bowels vary between constipation and loose stools, but that is normal for her. She has not been aware of any blood in the stool. She complains that her urination is slow, but bladder function remains adequate. She complains that her whole body hurts. That seems to be getting worse. She does not complain of headache. She does have some difficulty with balance, she says she fell twice. She has no focal neurologic symptoms. Medications: Atorvastatin Calcium 1 Tablet (of 40 mg) Oral daily, Cymbalta 1 Capsule (of 60 mg) Capsule Delayed Release Particles Oral daily, Folic Acid 1 Tablet (of 1 mg) Oral daily, Gabapentin 1 Tablet (of 600 mg) Oral daily, HYDROcodone-Acetaminophen 1 Tablet (of 5-325 mg) Oral daily, Lisinopril 1 Tablet (of 20 mg) Oral daily, Omeprazole 1 Tablet (of 20 mg) Tablet, enteric coated Oral daily, Spironolactone 1 Tablet (of 25 mg) Oral b.i.d., traZODone HCl 2 Tablet (of 50 mg) Oral at bedtime, ZyrTEC Allergy 1 Tablet (of 10 mg) Oral daily Allergies: penicillin Review of Systems: Constitutional - She complains that she is more tired, now to the point that it is all she can do to walk across the room. She has no activity. Her appetite is poor. Her weight is stable, but she has been retaining fluid. She does not have fever, night sweats, or hot flashes. She does complain of generalized itching. ECOG score is 3, ENMT - She has some sinus drainage. No mouth sores. No sore throat or difficulty swallowing, Hematologic/Lymphatic - She bruises easily, Respiratory - Some days she has shortness of breath. She has a dry cough. No pleuritic pain or hemoptysis, Cardiovascular - No angina pain. No palpitations, Gastrointestinal - No nausea or vomiting. No heartburn or acid reflux. Her bowels fluctuate between constipation and loose stools. She has not been aware of any blood in the stool or black stools. She does not complain of abdominal pain, Genitourinary (F) - Her urination is slow. No dysuria or hematuria. No urinary frequency. No urgency or incontinence, Musculoskeletal - She complains that her whole body hurts, Integumentary - She has itching but no rash, Neurologic - No headache. She has difficulty with balance. She has fallen twice. No numbness/paresthesias or other focal neurologic symptoms, Psychiatric - No anxiety or depression. She sleeps OK with trazodone. Vital Signs: Performed on Jul 10, 2019 09:42 Height - 60.00 in Temperature - 98.9 F (HIGH) Pulse - 108 /min (HIGH) Respiration - 18 /min BP - 133/72 mm(hg) O2 Sat - 97 % Pain - 0 Fatigue - 05 Performed on Jul 10, 2019 08:22 Height - 60.00 in Weight - 185.4 lbs (HIGH) BSA - 1.81 sq.m BMI - 36.21 (HIGH) Temperature - 98.1 F (LOW) Pulse - 104 /min (HIGH) Respiration - 24 /min BP - 135/72 mm(hg) O2 Sat - 97 % Pain - 7 Physical Examination: Constitutional - She appears somewhat weak generally, Eyes - Sclerae nonicteric. Conjunctivae clear, ENMT - No lesions noted in the oral cavity, Hematologic/Lymphatic - No cervical, clavicular, or axillary adenopathy, Respiratory - Lungs sound clear with good air movement bilaterally, Cardiovascular - Heart rhythm is regular. There is a II/ systolic murmur. There is no gallop or rub noted, Abdomen - Mildly distended but soft. Liver and spleen are not enlarged. There is no abdominal mass or ascites noted and there is no inguinal adenopathy, Extremities - Mild lower extremity edema with induration, Neurologic - No focal neurologic deficits noted. Lab/Imaging: Test performed on Jul 03, 2019 11:21 % Iron Saturation 18 % Glucose 101 mg/dL LDH, Total 383 IU/L BUN 14 mg/dL Iron, Total 45 mcg/dL Creatinine 0.8 mg/dL TIBC 249 mcg/dL Cr Clearance (Est) 84.98 mL/min Sodium 137 mmol/L Potassium 4.2 mmol/L Chloride 107 mmol/L CO2 24 mmol/L Calcium 7.6 mg/dL Protein, Total 5.9 g/dL Albumin 2.5 g/dL Bilirubin, Total 1.6 mg/dL Alkaline Phosphatase 141 IU/L AST (SGOT) 175 IU/L ALT (SGPT) 73 IU/L Haptoglobin 19 mg/dL Reticulocyte Count 2.75 % WBC 5.6 10^9/L RBC 2.66 10^12/L HGB 8.7 g/dL HCT 28.8 % MCV 108.3 fl MCH 30.2 pg Platelet Count 126 10^9/L Impression: 1. Patient with moderately severe anemia. In the past she has had recurrent episodes of iron deficiency, presumed to be due to inadequate oral iron absorption. Her recent parenteral iron replacement included 2 infusions of Injectafer in August/September 2018 and again in March 2019. 2. She now has persistent macrocytic anemia despite the parenteral iron replacement. The cause is uncertain. The main concern would be the possibility of underlying myelodysplastic syndrome. 3. She has mildly elevated total bilirubin and slightly elevated liver enzymes with CT evidence of liver cirrhosis. There was no associated splenomegaly. 4. She has a history of having undergone a gastric banding procedure approximately 15 years ago. 5. She also has GERD and a history of ulcerative colitis, and she has been seen by a [employer] financial application developer for possible GI blood loss. 6. She has a longstanding history of psoriasis. She had extensive treatment in the past, which included methotrexate. Her other medical illnesses include: 7. Hypertension. 8. Hyperlipidemia. 9. She has a previous history of type 2 diabetes, but she has not required treatment for it since her gastric banding. 10. Degenerative arthritis. 11. Osteoporosis. 12. History of seizures. 13. Depression. Plan: With a normal ferritin and slightly low transferrin saturation, she will be given additional parenteral iron replacement with 1 infusion of Injectafer. Her blood counts will be monitored weekly. I will tentatively plan a follow-up visit in 4 weeks. If she remains anemic without identifiable cause, she will need to undergo bone marrow aspiration/biopsy. Signed By: Juvenal Okeefe M.D. <<Signature on File>>
== END 2019-07-10 08:12 | disposition home or self-care (01) ==
LOC: ONCMED 08:13
PROVIDERS: Family Provider Nurse Practitioner Family; PCP Nurse Practitioner Family; Visit Provider Internal Medicine Medical Oncology
DX: D50.9 Iron deficiency anemia, unspecified (principal); R74.8 Abnormal levels of other serum enzymes; K74.60 Unspecified cirrhosis of liver; K21.9 Gastro-esophageal reflux disease without esophagitis; L40.9 Psoriasis, unspecified; I10 Essential (primary) hypertension; E78.5 Hyperlipidemia, unspecified; M19.90 Unspecified osteoarthritis, unspecified site; M81.0 Age-related osteoporosis without current pathological fracture; F32.9 Major depressive disorder, single episode, unspecified; Z87.19 Personal history of other diseases of the digestive system; Z98.84 Bariatric surgery status; Z86.39 Personal history of other endocrine, nutritional and metabolic disease; Z86.69 Personal history of other diseases of the nervous system and sense organs
CPT/HCPCS: 96365; 99214; J1439

== ENCOUNTER 2019-08-20 09:46 | Day surgery (SDC) | payer MEDICARE, OTHER, SELFPAY ==
[2019-08-19 12:39] VITALS: BMI 31.4
[2019-08-20 10:34] VITALS: BP 154/102; PULSE 104; RESP 18; TEMP 36.4; O2SAT 96
[2019-08-20] MEDS: sodium chloride 0.9% 1,000 ML 30 ML IV (10:48)
--- NOTE | 2019-08-20 11:17 | ANES.PREANE2 ---
Pre-Anesthetic Assessment Pre-Anesthetic Assessment: Height/Weight: Height 1.52 m Weight 73.028 kg Temp Pulse Resp BP Pulse Ox 97.5 F L 104 H 18 154/102 96 08/20/19 10:34 08/20/19 10:34 08/20/19 10:34 08/20/19 10:34 08/20/19 10:34 Proposed Procedure: Operation Date: 08/20/19 11:30 Proposed Procedures p Bone Marrow Biospy With Aspiration(Not Applicable) - Michael Reardon MD Last intake: Intake Last Liquid Date 08/20/19 Last Liquid Time 09:30 Last Solid Date 08/19/19 Last Solid Time 20:00 Social: Social History: Tobacco (quit 1994) and No alcohol Exam: Pre-Anes Outpt Exam: alert, oriented x 3, clear to auscultation bilaterally and regular rate & rhythm Airway: Submandibular: WNL Cervical ROM: WNL MP: 3 Dentition: False (upper and lower) History/ROS: No significant history except as noted Pulmonary: Pulmonary: ASHER CV/HEM: CV/HEM: HTN and Murmur : : None reported Hepatic: Comments: fatty liver GI: GI: GERD (controlled) Metabolic: Metabolic: DM (diet controlled) and Hyperlipidemia Musc/skel: Musc/skel: Lower Back Pain, OA/DJD and Weakness (gen) Neuropsych: Neuropsych: Seizure (last time was 6 month ago) Anesthetic Plan: ASA status: 4 Anesthesia: Anesthesia Evaluation and MAC Risk of > 500 ml blood loss (7ml/kg in children): No Meds/Allergies Current Medications: Current Medications Generic Name Dose Route Start Last Admin Trade Name Freq PRN Reason Stop Dose Admin Sodium Chloride 1,000 mls @ 30 ml s/hr 08/20/19 10:00 08/20/19 10:48 Sodium Chloride 0.9% IV 08/21/19 09:59 30 mls/hr .Q24H MEREDITH Administration PFSH Anesthesia PFSH: Medical History Anemia Diabetes HTN (hypertension) Hyperlipidemia Osteoporosis Seizure Surgical History History of knee surgery Family History Mother Myocardial infarction Hypertension Sister , 2019 Myocardial infarction Hypertension Brother Hypertension Diabetes Father Diabetes Social History Smoking and tobacco status: former smoker Data Anesthesia Cardiac Studies: No Data to Display
[2019-08-20 11:42] LABS: Basophils # 0.1 10^3/uL (0.0-0.1); Basophils % 0.7 %; Eosinophils # 0.7 10^3/uL (0.0-0.8); Eosinophils % 9.8 %; Hematocrit 29.1 % (37.0-47.0); Hemoglobin 9.1 g/dL (11.5-15.3); Lymphocytes # 1.6 10^3/uL (0.8-4.8); Lymphocytes % 22.1 %; Mean Corpuscular HGB Conc 31.3 g/dL (30.0-36.0); Mean Corpuscular Volume 108.6 fL (81-99); Mean Platelet Volume 11.5 fL (7.4-10.4); Monocytes # 0.7 10^3/uL (0.2-0.9); Monocytes % 10.3 %; Neutrophils % 56.7 %; Nucleated Red Blood Cells % 0 %; Platelet Count 142 10^3/cmm (130-400); Red Blood Count 2.68 10^6/uL (4.1-5.3); Red Cell Distribution Width 18.2 % (12.1-15.1)
--- NOTE | 2019-08-20 13:15 | P.PCN_ITS ---
Bone Marrow Biopsy Bone Marrow Biopsy: I was consulted by [] office regarding bone marrow biopsy on [Letty Lindsey]. Briefly, the patient is a 69[] year old [ female] with [History of anemia]. In the Outpatient Services Department, with nursing staff and laboratory technologists in attendance, the procedure was discussed with the patient. Appropriate consent form had been signed. Appropriate alternatives, benefits and risks of procedure were discussed with the patient and she was pre- operatively assessed with a history and physical by myself and cleared for the biopsy procedure. The patient did request IV sedation and that was provided by the Anesthesia Department. Under aseptic condition, right posterior iliac area was cleaned and prepped, local anesthesia was given, about 15 mL of bone marrow aspirate and core biopsy was obtained, patient tolerated procedure well hemostasis obtained, specimen was sent for routine histopathology and flow cytometry and cytogenetics and MDS panel. Postprocedure nursing instructions were given. Thank you for allowing me to participate in this patient's care and diagnosis. Coding Level of Care Code Acute Pumper Gauger Apprentice for Jocelyn Henderson
[2019-08-20 13:24] VITALS: BP 122/81; PULSE 93; RESP 10; TEMP 36.1; O2SAT 99
--- NOTE | 2019-08-20 13:31 | ANE.PACU2 ---
Inpatient post-anesthesia follow up: Airway intact: Yes Vital signs: Temperature 97 F Pulse Rate 93 Respiratory Rate 10 Blood Pressure 122/81 Pulse Oximetry 99 Oxygen Delivery Me thod Nasal Cannula Oxygen Flow Rate 3 Fraction of Inspir ed Oxygen Hydration adequate: Yes Nausea and vomiting: No Pain level: 0 Mental status: Baseline
[2019-08-20 13:37] VITALS: BP 150/81; PULSE 94; RESP 18; O2SAT 99
== END 2019-08-20 13:55 | disposition home or self-care (01) ==
PROVIDERS: PCP Nurse Practitioner Family; Visit Provider Internal Medicine Hematology & Oncology
PROC: 07DT3ZX Extraction of Bone Marrow, Percutaneous Approach, Diagnostic (ICD-10-PCS; CPT 38222; principal; 2019-08-20 11:30)
DX: D64.9 Anemia, unspecified (principal); I10 Essential (primary) hypertension; K21.9 Gastro-esophageal reflux disease without esophagitis; E11.9 Type 2 diabetes mellitus without complications; E78.5 Hyperlipidemia, unspecified; M19.90 Unspecified osteoarthritis, unspecified site; M81.0 Age-related osteoporosis without current pathological fracture
CPT/HCPCS: 12345; 38222; 85025; 88305; J7030

== ENCOUNTER 2019-09-02 11:37 | Outpatient (CLI) | payer MEDICARE, OTHER, SELFPAY ==
[2019-09-02 12:34] LABS: Basophils # 0.1 10^3/uL (0.0-0.1); Basophils % 0.6 %; Eosinophils # 0.2 10^3/uL (0.0-0.8); Eosinophils % 2.1 %; Hematocrit 21.5 % (37.0-47.0); Lymphocytes # 1.1 10^3/uL (0.8-4.8); Lymphocytes % 13.3 %; Mean Corpuscular HGB Conc 32.6 g/dL (30.0-36.0); Mean Corpuscular Hemoglobin 34.3 pg (28.0-34.0); Mean Corpuscular Volume 105.4 fL (81-99); Mean Platelet Volume 10.9 fL (7.4-10.4); Monocytes # 0.8 10^3/uL (0.2-0.9); Neutrophils # 6.3 10^3/uL (1.8-7.7); Neutrophils % 74.5 %; Nucleated Red Blood Cells % 0 %; Platelet Count 87 10^3/cmm (130-400); Red Blood Count 2.04 10^6/uL (4.1-5.3); Red Cell Distribution Width 14.9 % (12.1-15.1); White Blood Count 8.4 10^3/uL (4.0-10.0)
[2019-09-02 12:57] LABS: Alanine Aminotransferase 24 U/L (0-33); Albumin Level 2.8 g/dL (3.5-5.2); Alkaline Phosphatase 109 IU/L (35-105); Anion Gap 14.7 (5-19); Aspartate Amino Transferase 41 U/L (0-32); Blood Urea Nitrogen 23 mg/dL (8-23); Calcium 8.3 mg/dL (8.5-10.5); Carbon Dioxide 23 mmol/L (22-29); Chloride 100 mmol/L (98-107); Ferritin 426 ng/mL (15-150); Glucose 104 mg/dL (65-115); Iron 75 ug/dL (37-145); Lactate Dehydrogenase 277 U/L (135-214); Osmolality Calculated 271 mOsm/kg (285-295); Potassium 5.7 mmol/L (3.5-5.1); Sodium 132 mmol/L (136-145); Total Bilirubin 2.1 mg/dL (0.15-1.2); Total Protein 5.8 g/dL (6.6-8.7)
[2019-09-02 13:46] LABS: Unsaturated Iron Binding < 17 ug/dL (112-347)
[2019-09-02 13:49] LABS: Erythrocyte Sedimentation Rate 13 mm/hr (0-15)
--- NOTE | 2019-09-06 14:54 | ONC FU_ITS ---
Dr. Okeefe Patient Follow-Up Note Patient: Letty Lindsey Unit #: [id number]: 1950 Dicatated By: Juvenal Okeefe M.D.Date of Visit:Sep 02, 2019 Onc Med Follow-up/Prog Note Chief Complaint: Anemia. History of Present Illness: This is a 69 year-old woman with anemia. She has a history of having undergone a gastric banding procedure for obesity approximately 15 years ago. Her records indicate a prior history of peptic ulcer disease and a history of ulcerative colitis 10 years ago. She has had recurrent episodes of iron deficiency anemia, which required parenteral iron replacement, as she had not responded to oral iron therapy. She started getting these a few years ago while she was living in [place], and she had been getting them about every 6 months. She was most recently treated here with 2 infusions of Injectafer in September 2018. She had a scheduled follow-up visit with Iris Ashley on 03/25/2019. Her CBC at that time showed hemoglobin low at 7.5 g with hematocrit 23.8%. The red cell indices were in the low normal range. The white blood cell count was 5100. The platelet count was mildly decreased at 105,000. Her comprehensive metabolic profile showed normal renal function with BUN 17 and creatinine 0.76 mg/dL. The bilirubin was borderline at 1.0 mg/dL with the liver enzymes slightly elevated and with the albumin level mildly decreased at 3.3 g/dL. Her initial serum iron studies showed low transferrin saturation at 6%. She was started on oral iron supplementation with ferrous sulfate 325 mg 3 times daily. Her repeat CBC showed hemoglobin slightly lower at 7.2 g. Her repeat serum iron was elevated, but that was most likely inaccurate. In October 2018 she had been admitted to the hospital with nausea/vomiting. I do not think you specific cause for it was determined. It was severe enough that she did have a [address] abdomen/pelvis showed somewhat irregular contour of the liver margins, suggesting possible cirrhosis, and her liver enzymes were mildly elevated. There was no splenomegaly, though. Gallbladder ultrasound reported hepatomegaly with fatty infiltration of the liver. She improved with conservative management. I had seen her initially on 04/02/2019 for further management of the anemia. As her anemia was not responding to oral iron supplementation, she was given parenteral iron replacement with 2 infusions of Injectafer. She tolerated it without acute toxicity. At her follow-up visit on 05/11/2019 she did show evidence of response, though she was still mildly anemic with hemoglobin 10.5 g. The white blood cell count was 4400 and the platelet count was 100,000. The red cell indices were normal. Her serum iron studies show transferrin saturation 56.4% and the ferritin was slightly elevated at 382 ng/mL. Her B12 level was normal at 1187 pg/mL, and the folate was normal at 11.1 ng/mL. Her medical history, in addition to gastric banding, includes ulcerative colitis, peptic ulcer disease/GERD, hypertension, hyperlipidemia, type 2 diabetes, degenerative arthritis, and osteoporosis. She has longstanding history of psoriasis. She had extensive treatment for it in the past, including methotrexate. She has history of depression and a history of seizures. Her other surgeries include hysterectomy/BSO, bilateral total knee arthroplasty, and rotator cuff repair on the right shoulder. She has a history of smoking 1/2 pack of cigarettes daily for about 15 years, but she quit approximately 20 years ago. INTERIM HISTORY: Her repeat CBC from 07/03/2019 showed hemoglobin down to 8.7 g with white blood cell count 5600 and platelet count 126,000. The red cell indices were macrocytic. The uncorrected reticulocyte count was 2.75%. Her serum iron studies showed just slightly low transferrin saturation at 18%. Her protein electrophoresis showed no evidence of monoclonal protein. With those findings she was given additional parenteral iron replacement with Injectafer. During follow-up she remained moderately anemic with macrocytic red blood cell indices. She then underwent bone marrow aspiration/biopsy on 08/26/2019. The findings were nondiagnostic. Cellularity averaged 10 to 30%. There were no overt dysplastic changes and there was no evidence of infiltrative process. Iron stores were reported at adequate to mildly increased. The FISH panel for MDS was unrevealing. She is seen for a follow-up visit. Prior to the bone marrow procedure, she had been admitted to the hospital in [place] with pneumonia. She also was found to have overt ascites, and she has undergone paracentesis twice, the first time with removal of 5 L of fluid and the second time with removal of 6 L. She has now on treatment with lactulose, spironolactone, and rifaximin. She has very limited activity, and she has been prone to falling. She fell earlier today and lacerated her chin. Her ECOG score is 2. She says her appetite is getting a little better. She has no fever or night sweats. She has had sore throat. She does not complain of shortness of breath, cough, or chest pain. She is not having nausea, and her acid reflux symptoms are adequately managed. She does have diarrhea with the lactulose. She has been having some hesitancy with urination. She has pain in her shoulders and in her lower back. She also has pain in her hands. She does not complain of headache. She has very poor balance. She has been having some intermittent shaking. She has no focal neurologic symptoms. Medications: Atorvastatin Calcium 1 Tablet (of 40 mg) Oral daily, Cymbalta 1 Capsule (of 60 mg) Capsule Delayed Release Particles Oral daily, Folic Acid 1 Tablet (of 1 mg) Oral daily, Gabapentin 1 Tablet (of 600 mg) Oral daily, HYDROcodone-Acetaminophen 1 Tablet (of 5-325 mg) Oral daily, Lactose 1 Powder daily, Lisinopril 1 Tablet (of 20 mg) Oral daily, Omeprazole 1 Tablet (of 20 mg) Tablet, enteric coated Oral daily, Spironolactone 1 Tablet (of 25 mg) Oral b.i.d., traZODone HCl 2 Tablet (of 50 mg) Oral at bedtime, ZyrTEC Allergy 1 Tablet (of 10 mg) Oral daily Allergies: penicillin Review of Systems: Constitutional - Her energy is low. She is not doing much at home. Her appetite is improving. Her weight is down 26 pounds from her June visit. She reports that she's had a few paracentesis and had several liters of fluid taken off. No recent fevers. About one month ago she was hospitalized for pneumonia and high fever. No night sweats or hot flashes. ECOG score is 2, ENMT - No sinus congestion/drainage. No mouth sores. She has had sore throat. No difficulty swallowing, Hematologic/Lymphatic - No abnormal bruising or bleeding, Respiratory - No shortness of breath. No cough. No pleuritic pain or hemoptysis, Cardiovascular - No angina pain. No palpitations, Gastrointestinal - No nausea or vomiting. No heartburn or acid reflux. No diarrhea or constipation. No blood in the stool or black stools, Genitourinary (F) - No dysuria or hematuria. No urinary frequency. No urgency or incontinence. She has hesitation, Musculoskeletal - She has arthritic pain in her lower back and hands. She also has pain to her left related to a fall, Integumentary - She has generalized bruising and abrasion in varies stages of healing from falls. She has a laceration to her chin from a fall this morning, Neurologic - No headache. She is having dizziness. No numbness or tingling. She has intermittent shaking. No other focal neurologic symptoms, Psychiatric - No anxiety or depression. No insomnia. Vital Signs: Performed on Sep 02, 2019 13:10 Height - 60.00 in Weight - 159.4 lbs (LOW) BSA - 1.70 sq.m BMI - 31.13 (HIGH) Temperature - 98.4 F Pulse - 94 /min Respiration - 18 /min BP - 122/62 mm(hg) O2 Sat - 95 % (LOW) Pain - 8 Physical Examination: Constitutional - She appears generally weak, Eyes - Sclerae nonicteric. Conjunctivae clear, ENMT - There is a fairly deep laceration on her chin. There are no lesions noted in the oral cavity, Hematologic/Lymphatic - No cervical, clavicular, or axillary adenopathy, Respiratory - Lungs sound clear with good air movement bilaterally, Cardiovascular - Heart rhythm is regular. There is a II/ systolic murmur. There is no gallop or rub noted, Abdomen - Mildly distended with ascites. Liver is not enlarged. Spleen is not palpable. There is no abdominal mass or ascites noted and there is no inguinal adenopathy, Extremities - Mild pedal edema, Integumentary - She has extensive ecchymosis and purpura, Neurologic - No focal neurologic deficits noted. Lab/Imaging: Test performed on Sep 02, 2019 11:54 Ferritin 426 ng/mL Iron 75 mcg/dL LDH (Total) 277 U/L Sodium 132 mmol/L Iron Binding Capacity (TIBC) 91.76179 mcg/dl Potassium 5.7 mmol/L % Iron Saturation 81.0 % Chloride 100 mmol/L CO2 23 mmol/L UIBC < 17 mcg/dL Anion Gap 14.7 BUN 23 mg/dL Creatinine 1.7 mg/dL Cr Clearance (Est) 34.65 mL/min Glucose 104 mg/dL Calcium 8.3 mg/dL Protein, Total 5.8 g/dL Albumin 2.8 g/dL Globulin 3.0 g/dL Bilirubin, Total 2.1 mg/dL ALT (SGPT) 24 U/L AST (SGOT) 41 U/L Alkaline Phosphatase 109 IU/L ESR (Sed Rate) 13 mm/hr WBC 8.4 10 3/uL RBC 2.04 10 6/uL HGB 7.0 g/dL HCT 21.5 % MCV 105.4 fL MCH 34.3 pg MCHC 32.6 g/dL RDW 14.9 % Platelet Count 87 10 3/cmm MPV 10.9 fL Neutrophils 6.3 10 3/uL Lymphocytes 1.1 10 3/uL Monocytes 0.8 10 3/uL Eosinophils 0.2 10 3/uL Basophils 0.1 10 3/uL Neutrophil % 74.5 % Lymphocyte % 13.3 % Monocyte % 9.0 % Eosinophil % 2.1 % Basophils % 0.6 % NRBC % 0 % Impression: 1. Patient with moderately severe anemia. In the past she has had recurrent episodes of iron deficiency, presumed to be due to inadequate oral iron absorption. Her recent parenteral iron replacement included 2 infusions of Injectafer in August/September 2018 and again in March 2019. 2. She now has persistent macrocytic anemia despite the parenteral iron replacement. The cause is uncertain. The main concern would be the possibility of underlying myelodysplastic syndrome. 3. She has mildly elevated total bilirubin and slightly elevated liver enzymes with CT evidence of liver cirrhosis. There was no associated splenomegaly. 4. She has a history of having undergone a gastric banding procedure approximately 15 years ago. 5. She also has GERD and a history of ulcerative colitis, and she has been seen by a acid maker for possible GI blood loss. 6. She has a longstanding history of psoriasis. She had extensive treatment in the past, which included methotrexate. Her other medical illnesses include: 7. Hypertension. 8. Hyperlipidemia. 9. She has a previous history of type 2 diabetes, but she has not required treatment for it since her gastric banding. 10. Degenerative arthritis. 11. Osteoporosis. 12. History of seizures. 13. Depression. In June 2019 she was given further parenteral iron replacement with Injectafer, but with no significant improvement in the anemia. She then underwent bone marrow aspiration/biopsy on 08/26/2019. The findings, though, were nondiagnostic. In particular, her iron stores were normal to increased. As such, the cause of the anemia remains uncertain. In the meantime, she has developed clinically overt hepatic failure, for which she is now on treatment with lactulose, spironolactone, and rifaximin. She also has undergone paracentesis twice. She remains significantly anemic. She also is now prone to falling, and she has a significant laceration on her chin from a fall earlier today. Plan: She will go to the emergency room to have the chin laceration sutured. I will arrange for transfusion of 2 units PRBC. She is advised now to stop any further iron supplements, as if she remains transfusion dependent she will be prone to iron overload. Her blood counts will be monitored weekly. She will be transfused as needed. Signed By: Juvenal Okeefe M.D. <<Signature on File>>
== END 2019-09-02 11:38 | disposition home or self-care (01) ==
LOC: ONCMED 11:42
PROVIDERS: PCP Nurse Practitioner Family; Visit Provider Internal Medicine Medical Oncology
DX: D64.9 Anemia, unspecified (principal); S01.81XA Laceration without foreign body of other part of head, initial encounter; W19.XXXA Unspecified fall, initial encounter; K72.90 Hepatic failure, unspecified without coma; K74.60 Unspecified cirrhosis of liver; I10 Essential (primary) hypertension; E78.5 Hyperlipidemia, unspecified; E11.9 Type 2 diabetes mellitus without complications; M19.90 Unspecified osteoarthritis, unspecified site; M81.0 Age-related osteoporosis without current pathological fracture; F32.9 Major depressive disorder, single episode, unspecified; K21.9 Gastro-esophageal reflux disease without esophagitis; Z98.84 Bariatric surgery status; Z91.81 History of falling; Z87.19 Personal history of other diseases of the digestive system
CPT/HCPCS: 36415; 80053; 82728; 83540; 83550; 83615; 85025; 85045; 85651; 99214

== ENCOUNTER 2019-09-02 13:56 | Emergency (ER) | payer MEDICARE, OTHER, SELFPAY ==
[2019-09-02 14:07] VITALS: BMI 30.7
[2019-09-02 14:11] VITALS: BP 132/78; PULSE 96; RESP 20; TEMP 36.8; O2SAT 98
--- NOTE | 2019-09-02 14:21 | XR_ITS ---
WS: [id number] XR shoulder LT min 2V* [id number] REASON FOR EXAM: fall FINDINGS: Deformity of the acromioclavicular joint and the distal clavicle is elevated suggesting a f racture weren't sure the age of the fracture. The body of the scapula was normal. The glenoid humeral articulations are normal. There is evidence of a density in the left lung base which appears to be a small amount of pleural ef fusion and there appears to be rib fractures in this area involving the eighth rib. XR/XR shoulder LT min 2V* [id number] IMPRESSION: Deformity of the distal clavicle with unsure if this is an remote fracture Clinical correlation recommended. There is a density suggesting effusion left lung base with a fracture of the ei ghth rib on the left.
--- NOTE | 2019-09-02 14:22 | W.ED.FALL ---
HPI - Fall General: Chief Complaint: Fall Stated Complaint: fall Time Seen by Provider: 09/02/19 14:17 History of Present Illness: HPI Narrative: Patient tripped and fell today striking her chin and left shoulder and she has a laceration to her chin and has pain with range of motion of left shoulder. She did hurt her left shoulder about 3 weeks ago went to the ER had x-ray was normal and then from a fall. Said is now reinjured. She is anemic and has transfusion scheduled as per Dr. Okeefe's office MD complaint: fall Onset (ago): minute(s) Fall from: standing Fall witnessed: yes, by family Place fall occurred: other Loss of consciousness: None Prolonged down time: no Symptoms prior to fall: none Context: tripped/slipped Location of injury: face Location of injury - extremities: Left: shoulder Severity: mild Severity scale (1-10): 2 Quality: aching Associated symptoms-after fall: Reports no associated symptoms; Denies abdominal pain, chest pain or headache(s) Review of Systems Const: Denies: fever(s), chills or body aches Eyes: Denies: change in vision or blurry vision ENMT: Denies: throat pain or nasal congestion Card: Denies: chest pain or dyspnea on exertion Resp: Denies: dyspnea, productive cough or non-productive cough GI: Denies: abdominal pain, nausea or vomiting Musc: Reports: joint pain; Denies: extremity pain Skin/Breast: Reports: other (Laceration to chin); Denies: rash Neuro: Denies: headache(s) Psych: Denies: anxiety or depression Randal/Lymph: Denies: easy bruising [facility] ED PFSH: Medical History (Updated 08/21/19 @ 22:15 by Misty Jones MD) Anemia Diabetes Diastolic dysfunction HTN (hypertension) Lower extremity edema Osteoporosis Seizure Surgical History History of knee surgery Family History Mother Myocardial infarction Hypertension Sister , 2019 Myocardial infarction Hypertension Brother Hypertension Diabetes Father Diabetes Social History Smoking and tobacco status: former smoker Physical Exam Const: COMMON NORMALS: no acute distress, average body habitus and patient oriented x3 HENMT: COMMON NORMALS: normocephalic HEAD & SCALP: normal to inspection and normocephalic FACE & SINUS: normal facial exam Eye: COMMON NORMALS: conjunctivae normal GENERAL EYE: appearance normal, both eyes and all related structures CONJUNCTIVA: Yes conjunctivae normal Neck/C-Spine: COMMON NORMALS: no JVD Chest: COMMONS NORMALS: normal inspection of the chest Resp: COMMON NORMALS: normal respiratory effort and clear to auscultation bilaterally AUSCULTATION: clear to auscultation bilaterally Cardio: COMMON NORMALS: no JVD, regular rate and regular rhythm RATE: regular rate RHYTHM: regular rhythm GI: COMMON NORMALS: Normal to inspection, nondistended, normoactive bowel sounds present Extremity: COMMON NORMALS: normal to inspection LEFT UPPER EXTREMITY: Yes shoulder joint (Tender to the proximal humerus area no swelling) Neuro: COMMON NORMALS: patient oriented x3 Skin: NARRATIVE SKIN EXAM: Linear lack to 10 OTHER: Has old bruising on and about the face Procedures Laceration Laceration 1: Site: face Size (cm): 3 Description: linear Depth: simple, single layer Local Anesthetic: lidocaine 1% Amount of anesthesia used (mL): 2 Pre-repair: wound explored and irrigated extensively Skin layer closed with: vicryl Size (cm): 3-0 Number of sutures: 5 Technique: simple, interrupted Course Vital Signs: Vital signs: Vital Signs Temperature 98.3 F 09/02/19 14:11 Pulse Rate 96 09/02/19 14:11 Respiratory Rate 20 H 09/02/19 14:11 Blood Pressure 132/78 09/02/19 14:11 Pulse Oximetry 98 09/02/19 14:11 MDM - Fall MDM Narrative: Medical decision making narrative: Discussed case with Dr. Russo Discharge Plan Discharge Prescriptions: No Action lactulose 10 gram packet 10 gm PO TID RF: 0 furosemide 20 mg tablet 20 mg PO DAILY RF: 0 rifaximin 550 mg tablet 550 mg PO BID RF: 0 meclizine 25 mg tablet,chewable 25 mg PO DAILY RF: 0 spironolactone 25 mg tablet 25 mg PO DAILY Qty: 30 RF: 6 gabapentin 600 mg Tablet 600 mg PO BID RF: 0 trazodone 50 mg Tablet 100 mg PO DAILY RF: 0 cetirizine 10 mg Tablet 10 mg PO DAILY RF: 0 ondansetron HCl [Zofran] 4 mg Tablet 4 mg PO Q6H PRN (Reason: Nausea) RF: 0 clobetasol 0.05 % Cream 1 applic TOPICAL DAILY RF: 0 hydrocodone-acetaminophen 10-325 mg Tablet 1 tab PO Q8H PRN (Reason: Pain) RF: 0 omeprazole 20 mg Capsule,Delayed Release(Dr/Ec) 20 mg PO BID RF: 0 nystatin 100,000 unit/gram Powder 1 applic TOPICAL BID RF: 0 albuterol sulfate 90 mcg/actuation Hfa Aerosol Inhaler 2 puff INHALATION 6XD PRN (Reason: Shortness Of Breath) RF: 0 duloxetine [Cymbalta] 60 mg Capsule,Delayed Release(Dr/Ec) 60 mg PO DAILY RF: 0 diclofenac sodium [Voltaren] 1 % Gel 2 g TOPICAL QID RF: 0 Narcan 4 mg/actuation [place],Non-Aerosol 4 mg INTRANASAL Q3M PRN (Reason: overdose) RF: 0 Coding Level of Care Code ED Rhythmic Gymnastics Coach for Chg Fwd Exam Comprehensive
[2019-09-02 15:36] VITALS: BP 124/74; PULSE 91; RESP 14; O2SAT 96
== END 2019-09-02 15:37 | disposition home or self-care (01) ==
PROVIDERS: Emergency Provider Nurse Practitioner Family; PCP Nurse Practitioner Family
DX: S01.81XA Laceration without foreign body of other part of head, initial encounter (principal); W01.198A Fall on same level from slipping, tripping and stumbling with subsequent striking against other object, initial encounter; E11.9 Type 2 diabetes mellitus without complications; I10 Essential (primary) hypertension; Z87.891 Personal history of nicotine dependence
CPT/HCPCS: 12013; 12345; 73030; 99281; 99283